=== PATIENT | female | born 1985 | race Asian ===

== ENCOUNTER 2016-11-18 15:00 | Inpatient (IN) | payer SELFPAY ==
[~2016-11-18] VITALS: Ht 162 cm; Wt 71.2 kg
[2016-11-18] MEDS ORDERED: LACTATED RINGERS 1,000 ML IV SCH (15:18)
[2016-11-18] MEDS ORDERED: METHYLERGONOVINE 0.2 MG/ML AMP IM PRN (15:20)
[2016-11-18] MEDS ORDERED: CARBOPROST 250 MCG/ML AMP IM PRN (15:20)
[2016-11-18] MEDS ORDERED: OXYTOCIN 20 UNITS in LACTATED RINGERS 1,000 ML IV SCH (15:35)
[2016-11-18] MEDS ORDERED: NALBUPHINE 10 MG/ML AMP IVP PRN (15:50)
[2016-11-18 16:00] VITALS: BP 112/70
[2016-11-18] MEDS ORDERED: NALBUPHINE HYDROCHLORIDE 10 MG/ML VIAL ONE (16:02)
[2016-11-18 16:12] LABS: BASOPHILS # (AUTO) 0.1 K/uL (0.00-0.22); BASOPHILS % (AUTO) 1.1 % (0.0-2.0); EOSINOPHILS # (AUTO) 0.2 K/uL (0-0.4); EOSINOPHILS % (AUTO) 1.7 % (0.0-4.0); HEMATOCRIT 38.6 % (36-48); HEMOGLOBIN 12.8 g/dL (12.0-16.0); LYMPHOCYTES # (AUTO) 1.4 K/uL (2.5-16.5); LYMPHOCYTES % (AUTO) 13.6 % (20.5-51.1); MEAN CORPUSCULAR HEMOGLOBIN 29 pg (27-31); MEAN CORPUSCULAR HGB CONC 33 g/dL (33-37); MEAN CORPUSCULAR VOLUME 87 fL (80-94); MONOCYTES # (AUTO) 0.6 K/uL (0.8-1.0); MONOCYTES % (AUTO) 5.7 % (1.7-9.3); NEUTROPHILS # (AUTO) 7.6 K/uL (1.8-7.7); NEUTROPHILS % (AUTO) 77.9 % (42.2-75.2); PLATELET COUNT (AUTO) 165 K/uL (140-450); RED BLOOD CELL COUNT(AUTO) 4.45 MIL/uL (4.20-5.40); RED CELL DISTRIBUTION WIDTH 13.2 % (11.6-13.7); WHITE BLOOD COUNT (AUTO) 9.9 K/uL (4.8-10.8)
[2016-11-18] MEDS ORDERED: BUPIVACAINE 0.125%/NS PREMIX 250 ML ONE (16:32)
[2016-11-18] MEDS ORDERED: OXYTOCIN 10 UNITS/ML VIAL ONE (17:39)
[2016-11-18 17:41] LABS: BILIRUBIN,URINE NEGATIVE (NEGATIVE); BLOOD, URINE 2+ (NEGATIVE); COLOR,URINE YELLOW (YELLOW); LEUKOCYTE ESTERASE ,URINE NEGATIVE (NEGATIVE); NITRITE, URINE NEGATIVE (NEGATIVE); UGLUCOSE NEGATIVE (NEGATIVE)
[2016-11-18 17:42] LABS: APPEARANCE,URINE CLEAR (CLEAR)
[2016-11-18 17:58] LABS: RBC,URINE 20-50 /HPF (0-5); WBC,URINE 0-5 (RARE) /HPF (0-5)
[2016-11-18] MEDS ORDERED: OXYTOCIN 10 UNITS/ML VIAL IM SCH (18:00)
[2016-11-18] MEDS ORDERED: OXYTOCIN 20 UNITS/LR PREMIX 1,000 ML IV ONE (18:02)
[2016-11-18] MEDS ORDERED: LIDOCAINE 1% 0 ML ONE (18:03)
[2016-11-19] MEDS ORDERED: BENZOCAINE/MENTHOL 20%-0.5% 60 GM CAN TP PRN (01:40)
[2016-11-19] MEDS ORDERED: IBUPROFEN 800 MG TAB PO PRN (01:40)
[2016-11-19] MEDS ORDERED: oxyCODONE/APAP 5/325 MG 1 TAB TAB PO PRN (01:40)
[2016-11-19] MEDS ORDERED: OXYTOCIN 10 UNITS/ML VIAL IM PRN (01:40)
[2016-11-19] MEDS ORDERED: MEASLES, MUMPS, AND RUBELLA 1 VIAL SQVAC PRN (01:40)
[2016-11-19] MEDS ORDERED: HYDROcodone/APAP 5/325 MG 1 TAB TAB PO PRN (01:40)
[2016-11-19] MEDS ORDERED: METHYLERGONOVINE 0.2 MG/ML AMP IM PRN (01:40)
[2016-11-19] MEDS ORDERED: TEMAZEPAM 15 MG CAP PO PRN (01:40)
--- NOTE | 2016-11-19 08:15 | NUR ---
PATIENT HAS BEEN SCREENED AND CATEGORIZED LOW NUTRITION RISK. PATIENT WILL BE SEEN WITHIN 7 DAYS OF ADMISSION. 11/25/[address]
[2016-11-19] MEDS ORDERED: DOCUSATE SOD/SENNA 50/8.6 MG 1 TAB PO SCH (21:00)
[2016-11-20 06:02] LABS: HEMATOCRIT 37.8 % (36-48); HEMOGLOBIN 12.6 g/dL (12.0-16.0)
[2016-11-20] MEDS ORDERED: LIDOCAINE 1% 50 ML ONE (15:38)
[2016-11-20] MEDS ORDERED: OXYTOCIN 10 UNITS/ML VIAL ONE (15:39)
== END 2016-11-20 13:45 | disposition home or self-care (01) | DRG 775 ==
LOC: MLD 15:00 → MFCC 11-19 01:30
PROVIDERS: ADMIT Obstetrics & Gynecology; ATTEND Obstetrics & Gynecology
PROC: 10E0XZZ Delivery of Products of Conception, External Approach (ICD-10-PCS; principal; 2016-11-18)
PROC: 10907ZC Drainage of Amniotic Fluid, Therapeutic from Products of Conception, Via Natural or Artificial Opening (ICD-10-PCS; 2016-11-18)
PROC: 0HQ9XZZ Repair Perineum Skin, External Approach (ICD-10-PCS; 2016-11-18)
PROC: 00HU33Z Insertion of Infusion Device into Spinal Canal, Percutaneous Approach (ICD-10-PCS; 2016-11-18)
PROC: 3E0R3CZ (ICD-10-PCS; 2016-11-18)
PROC: 3E0234Z Introduction of Serum, Toxoid and Vaccine into Muscle, Percutaneous Approach (ICD-10-PCS; 2016-11-20)
PROC: 3E0234Z Introduction of Serum, Toxoid and Vaccine into Muscle, Percutaneous Approach (ICD-10-PCS; 2016-11-20)
DX: O71.4 Obstetric high vaginal laceration alone (principal); Z23 Encounter for immunization; Z37.0 Single live birth; Z3A.38 38 weeks gestation of pregnancy
CPT/HCPCS: 36415; 51702; 59409; 81001; 85018; 85025; 86592; 86886; 86900; 86901; 90707; 90715; J2001; J2300; J2590; J3490